=== PATIENT | male | born 1965 | race Caucasian/White ===

== ENCOUNTER 2017-09-16 18:13 | Emergency (ER) | payer BC ==
[2017-09-16] MEDS ORDERED: HYDROMORPHONE HCL INJ/PF 2 MG/ML AMPULE ONE ×2 (18:25→18:49)
[2017-09-16] MEDS ORDERED: HEPARIN SODIUM,PORCINE/D5W 25,000 UNIT/250 ML RTUINJ IV ONE (18:26)
[2017-09-16] MEDS ORDERED: ONDANSETRON HCL INJ/PF 4 MG/2 ML SDV ONE (18:28)
[2017-09-16] MEDS ORDERED: NITROGLYCERIN 0.4 MG/TAB 25 TAB/BOTTLE ONE (18:29)
[2017-09-16] MEDS ORDERED: HEPARIN SOD (PORCINE) 1,000 UNIT/ML 1 ML VIAL ONE (18:30)
[2017-09-16] MEDS ORDERED: HEPARIN SOD (PORCINE) 1,000 UNIT/ML 10 ML VIAL ONE (18:31)
[2017-09-16] MEDS ORDERED: NITROGLYCERIN/D5W 50 MG/250 ML RTUINJ IV ONE (18:34)
[2017-09-16] MEDS ORDERED: LABETALOL HCL INJ 20 MG/4 ML DISP.SYRIN IV ONE (18:48)
[2017-09-16] MEDS ORDERED: METOPROLOL TARTRATE PF/INJ 5 MG/5 ML SDV IV ONE ×4 (18:51→19:21)
[2017-09-16] MEDS ORDERED: ASPIRIN 81 MG TABLET, CHEWABLE PO ONE (18:52)
[2017-09-16 19:00] LABS: PROTHROMBIN TIME 12.8 SEC (11.4-15.4)
[2017-09-16 19:03] LABS: ABSOLUTE BASOPHILS # (AUTO) 0.1 10^3/uL (0.0-0.2); ABSOLUTE EOSINOPHILS # (AUTO) 0.1 10^3/uL (0.0-0.6); ABSOLUTE LYMPHOCYTES (AUTO) 5.2 10^3/uL (0.5-4.7); BASOPHILS % (AUTO) 0.7 % (0-2); EOSINOPHILS % (AUTO) 0.6 % (0-6); HEMOGLOBIN 15.6 g/dL (13.5-17.0); LYMPHOCYTES % (AUTO) 35.9 % (13-45); MEAN CORPUSCULAR HEMOGLOBIN 28.4 pg (27.0-33.4); MEAN CORPUSCULAR HGB CONC 33.9 g/dL (32.0-36.0); MEAN CORPUSCULAR VOLUME 84 fl (80-97); PLATELET COUNT 343 10^3/uL (150-450); RED BLOOD COUNT 5.49 10^6/uL (4.35-5.55); RED CELL DISTRIBUTION WIDTH 13.6 % (11.5-14.0); SEGMENTED NEUTROPHILS % (AUTO) 55.8 % (42-78); TOTAL CELLS COUNTED % (AUTO) 100 %; WHITE BLOOD COUNT 14.4 10^3/uL (4.0-10.5)
[2017-09-16 19:07] LABS: ALANINE AMINOTRANSFERASE 27 U/L (21-72); ALBUMIN 4.5 g/dL (3.5-5.0); ALKALINE PHOSPHATASE 113 U/L (38-126); ANION GAP 15 (5-19); ASPARTATE AMINO TRANSFERASE 25 U/L (17-59); BILIRUBIN,DIRECT 0.5 mg/dL (0.0-0.4); BILIRUBIN,TOTAL 0.6 mg/dL (0.2-1.3); BLOOD UREA NITROGEN 22 mg/dL (7-20); CALCIUM 9.9 mg/dL (8.4-10.2); CARBON DIOXIDE 20 mmol/L (22-30); CHLORIDE 105 mmol/L (98-107); CREATINE KINASE 214 U/L (55-170); GLUCOSE 150 mg/dL (75-110); POTASSIUM 3.6 mmol/L (3.6-5.0); SODIUM 140.4 mmol/L (137-145); TOTAL PROTEIN 7.1 g/dL (6.3-8.2)
--- NOTE | 2017-09-16 19:11 | RADIOLOGY REPORT (SQ) ---
EXAM DESCRIPTION: CHEST SINGLE VIEW COMPLETED DATE/TIME: 09/16/2017 7:02 pm REASON FOR STUDY: chest pain COMPARISON: None. EXAM PARAMETERS: NUMBER OF VIEWS: One view. TECHNIQUE: Single frontal radiographic view of the chest acquired. RADIATION DOSE: NA LIMITATIONS: None. FINDINGS: LUNGS AND PLEURA: No opacities, masses or pneumothorax. No pleural effusion. MEDIASTINUM AND HILAR STRUCTURES: No masses. Contour normal. HEART AND VASCULAR STRUCTURES: Heart normal in size. Normal vasculature. BONES: No acute findings. HARDWARE: None in the chest. OTHER: No other significant finding. IMPRESSION: NO ACUTE RADIOGRAPHIC FINDING IN THE CHEST. TECHNICAL DOCUMENTATION: JOB ID: [id number] [employer]- All Rights Reserved Reading location - IP/workstation name: [email or web address]
--- NOTE | 2017-09-16 19:13 | ER Document Report ---
ED Cardiac - General Chief Complaint: Chest Pain Stated Complaint: CHEST PAIN Time Seen by Provider: 09/16/17 18:20 Mode of Arrival: Wheelchair Information source: Patient Notes: This is a 51-year-old man with no medical problems who presents to the emergency room with retrosternal chest pain radiating down the left arm associated with diaphoresis. Patient has no medicines and has no medical problems. He is a smoker (1 pack every other day). He denies any cocaine. He states he has been under stress lately. He was working out today: He was pulling a car bishop with a large tree trunk on it. He was working out for approximately 20 minutes when the pain started. She has no cardiac history. TRAVEL OUTSIDE OF THE [place] IN LAST 30 DAYS: No - HPI Patient complains to provider of: Chest pain, Chest tightness, Other - Diaphoresis Use of: denies: Alcohol, Amphetamines, Bath salts, Caffeine, Cocaine, Decongestants Was the onset of pain: Gradual When did pain begin: While working out Is the pain a: New problem Chest pain location: Substernal Quality of pain: Heaviness Chest pain radiation location: Left shoulder Severity now: Moderate Severity at worst: Moderate Pain level currently: 4 Cardiac risk factors: None Positive cardiac history: No Associated symptoms: Diaphoresis. denies: Abdominal pain Exacerbated by: Emotional stress Relieved by: Nothing Similar symptoms previously: No Recently seen / treated by doctor: No - Related Data Allergies/Adverse Reactions: Penicillins Allergy (Verified 09/16/17 19:11) Past Medical History - General Information source: Patient - Social History Smoking Status: Current Every Day Smoker Cigarette use (# per day): Yes Chew tobacco use (# tins/day): No - Half a pack per day Frequency of alcohol use: None Drug Abuse: None Lives with: Family Family History: None Patient has suicidal ideation: No Patient has homicidal ideation: No - Medical History Medical History: Negative Past Surgical History: Reports: Hx Orthopedic Surgery Review of Systems - Review of Systems Constitutional: denies: Chills, Fever EENT: No symptoms reported Cardiovascular: See HPI Respiratory: No symptoms reported Gastrointestinal: No symptoms reported Genitourinary: No symptoms reported Male Genitourinary: No symptoms reported Musculoskeletal: No symptoms reported Skin: No symptoms reported Hematologic/Lymphatic: No symptoms reported Neurological/Psychological: No symptoms reported Physical Exam - Vital signs Vitals: Pulse Ox 97 09/16/17 18:15 Notes: Physical exam: GENERAL: 81-year-old man, alert and oriented 3, complaining of 8/10 chest pain. HEAD: Atraumatic, normocephalic. EYES: Pupils equal round and reactive to light, extraocular movements intact, sclera anicteric, conjunctiva are normal. ENT: TMs normal, nares patent, oropharynx clear without exudates. Moist mucous membranes. NECK: Normal range of motion, supple without obvious mass or JVD. LUNGS: Breath sounds clear to auscultation bilaterally and equal. No wheezes rales or rhonchi. HEART: Regular rate and rhythm without murmurs, rubs or gallops. ABDOMEN: Soft, normoactive bowel sounds. No tenderness to palpation. No guarding, no rebound. No masses appreciated. EXTREMITIES: Normal range of motion, no pitting or edema. No clubbing or cyanosis. NEUROLOGICAL: Cranial nerves II through XII grossly intact. Normal speech, moving all extremities. PSYCH: Normal mood, normal affect. SKIN: Warm, Dry, normal turgor, no rashes or lesions noted. Course - Re-evaluation Re-evalutation: Thrombolytics initiated. Aspirin 324 chewables given Sublingual nitroglycerin IV heparin bolus (4000 units) followed by drip at 1000 units an hour started. IV nitroglycerin drip initiated IV Dilaudid and IV Zofran for pain and nausea Plavix: 300 mg given IV metoprolol: Multiple boluses Patient's pain in the emergency room has fluctuated. Currently his pain is 2 out of 10. Repeat 12-lead shows significant worsening of ST elevations in the inferior leads and the lateral leads. The patient's blood pressure has actually increased. We have increased the nitro glycerin drip and he is gotten IV metoprolol boluses. Given the probable likelihood of her RV involvement, will have to be very careful about blood pressure if it begins to drop. 09/16/17 19:14 Note: On reassessment, the patient's blood pressure had improved but not resolved completely. Transporting the ER. Second EKG was faxed to [place]. 09/16/17 19:52 09/16/17 23:40 - Vital Signs Vital signs: Temp Pulse Resp BP Pulse Ox 98.1 F 97 16 167/123 H 96 03/06/18 21:37 09/16/17 21:37 09/16/17 21:37 09/16/17 21:37 09/16/17 21:37 - Laboratory Result Diagrams: 09/16/17 18:20 09/16/17 18:20 Laboratory results interpreted by me: 09/16/17 09/16/17 18:20 18:20 WBC 14.4 H Absolute Lymphocytes 5.2 H Carbon Dioxide 20 L BUN 22 H Glucose 150 H Direct Bilirubin 0.5 H Creatine Kinase 214 H - Diagnostic Test Radiology reviewed: Image reviewed, Reports reviewed - Chest x-ray shows no infiltrates, no obvious mediastinal widening. - EKG Interpretation by Me Rate: Normal Rhythm: NSR - EKG shows normal sinus rhythm with a ventricular rate of 86, ST elevations in II, III, and F, ST depressions in L, 1, V1, V2 Critical Care Note - Critical Care Note Total time excluding time spent on procedures (mins): 60 Discharge - Discharge Clinical Impression: Acute DE Condition: Serious Disposition: [facility]
[2017-09-16 19:19] LABS: CREATINE KINASE MB 2.66 ng/mL (<4.55)
[2017-09-16 19:24] LABS: TROPONIN I < 0.012 ng/mL
[2017-09-16] MEDS ORDERED: CLOPIDOGREL BISULFATE 300 MG TABLET PO ONE (20:40)
[2017-09-16] MEDS ORDERED: TENECTEPLASE INJ 50 MG KIT IV ONE ×2 (20:41→21:28)
--- NOTE | 2017-09-16 21:19 | EKG REPORT ---
SEVERITY:- ABNORMAL ECG - ACCELERATED JUNCTIONAL RHYTHM RIGHT BUNDLE BRANCH BLOCK INFERIOR AND LATERAL INFARCT, ACUTE : Confirmed by: Dulce Fabian 16-Sep-2017 21:18:38
--- NOTE | 2017-09-16 21:19 | EKG REPORT ---
SEVERITY:- ABNORMAL ECG - ECTOPIC ATRIAL RHYTHM LEFT POSTERIOR FASCICULAR BLOCK INFERIOR INJURY, PROBABLE EARLY ACUTE INFARCT : Confirmed by: Dulce Fabian 16-Sep-2017 21:19:02
[2017-09-16] MEDS ORDERED: CLOPIDOGREL BISULFATE 300 MG TABLET ONE (21:28)
[2017-09-16] MEDS ORDERED: CLOPIDOGREL BISULFATE 75 MG TABLET ONE (21:28)
[2017-09-16] MEDS ORDERED: ASPIRIN 81 MG TABLET, CHEWABLE ONE (21:28)
[2017-09-16 21:56] VITALS: BP 167/123
== END 2017-09-16 19:32 | disposition short-term general hospital (02) ==
LOC: ER 18:13
DX: I21.9 Acute myocardial infarction, unspecified (principal); R07.9 Chest pain, unspecified; R61 Generalized hyperhidrosis; F17.210 Nicotine dependence, cigarettes, uncomplicated; Z88.0 Allergy status to penicillin
CPT/HCPCS: 93005; 99291; 96375; 96365; 96366; 96368; 36415; 82553; 82550; 85025; 85610; 80053; 84484; 71045; 93010; J3101; J3490 ×3; J1644 ×2; J1170; J2405

== ENCOUNTER 2020-05-16 22:00 | Emergency (ER) | payer BC ==
--- NOTE | 2020-05-16 22:39 | ER Document Report ---
ED Medical Screen (RME) - General Stated Complaint: LEFT SIDE NUMBNESS PREV HEARTACHE Time Seen by Provider: 05/16/20 22:22 Notes: Patient is a 54-year-old male who presents to the emergency department with a chief complaint of left-sided weakness and numbness. Patient states that around 1600 when he got off work, he noticed that his cell phone 1 drop out of his hand. Patient states that he has history of heart attack 2 years ago with stent placement. Denies any chest pain. He is not currently taking any medications. Exam: Slight weakness noted to the left side as compared to right. I have greeted and performed a rapid initial assessment of this patient. A comprehensive ED assessment and evaluation of the patient, analysis of test results and completion of medical decision making process will be conducted by an additional ED providers. TRAVEL OUTSIDE OF THE U[place] IN LAST 30 DAYS: No - Related Data Allergies/Adverse Reactions: Penicillins Allergy (Verified 09/16/17 19:11) Past Medical History Renal/ Medical History: Denies: Hx Peritoneal Dialysis Past Surgical History: Reports: Hx Orthopedic Surgery Physical Exam - Vital signs Vitals: Temp Pulse Resp BP Pulse Ox 98.8 F 80 19 176/109 H 98 05/16/20 22:18 05/16/20 22:18 05/16/20 22:18 05/16/20 22:18 05/16/20 22:18 Course - Vital Signs Vital signs: Temp Pulse Resp BP Pulse Ox 98.8 F 80 19 176/109 H 98 05/16/20 22:18 05/16/20 22:18 05/16/20 22:18 05/16/20 22:18 05/16/20 22:18
[2020-05-16] MEDS ORDERED: NICARDIPINE HCL RTU, ISO-OS 20 MG/200 ML RTUINJ IV PRN (22:56)
[2020-05-16] MEDS ORDERED: NIMODIPINE 30 MG CAPSULE PO ONE ×2 (22:56→22:59)
[2020-05-16] MEDS ORDERED: TRANEXAMIC ACID INJ/PF 1,000 MG/10 ML SDV IV ONE (22:58)
--- NOTE | 2020-05-16 22:59 | RADIOLOGY REPORT (SQ) ---
CT head without contrast on 05/16/2020 at 10:32 PM CLINICAL INDICATION: Left-sided numbness TECHNIQUE: Multiple axial images are obtained throughout the head without the administration of contrast. This exam was performed according to our departmental dose-optimization program, which includes automated exposure control, adjustment of the mA and/or kV according to patient size and/or use of iterative reconstruction technique. Total DLP is 990.56 mGy*cm. COMPARISON: None FINDINGS: There is acute intraparenchymal hemorrhage/hematoma within the right basal ganglia measuring approximately 3.5 x 1.9 x 2.7 cm. Most likely this is hypertensive in nature but please correlate clinically. There is no hydrocephalus. There is no CT evidence of acute infarct. No other hemorrhage is noted. There are no abnormal extra-axial fluid collections. There is no mass effect or midline shift. No bony abnormality is noted. IMPRESSION: Acute intraparenchymal hemorrhage/hematoma in the right basal ganglia most likely hypertensive in nature.
[2020-05-16 23:02] LABS: ABSOLUTE BASOPHILS # (AUTO) 0.1 10^3/uL (0.0-0.2); ABSOLUTE EOSINOPHILS # (AUTO) 0.2 10^3/uL (0.0-0.6); ABSOLUTE LYMPHOCYTES (AUTO) 2.4 10^3/uL (0.5-4.7); ABSOLUTE MONOCYTES (AUTO) 0.6 10^3/uL (0.1-1.4); BASOPHILS % (AUTO) 0.8 % (0-2); EOSINOPHILS % (AUTO) 2.2 % (0-6); HEMATOCRIT 45.4 % (37.9-51.0); HEMOGLOBIN 16.1 g/dL (13.5-17.0); LYMPHOCYTES % (AUTO) 25.6 % (13-45); MEAN CORPUSCULAR HEMOGLOBIN 29.9 pg (27.0-33.4); MEAN CORPUSCULAR HGB CONC 35.4 g/dL (32.0-36.0); MEAN CORPUSCULAR VOLUME 84 fl (80-97); MONOCYTES % (AUTO) 6.7 % (3-13); PLATELET COUNT 225 10^3/uL (150-450); RED BLOOD COUNT 5.38 10^6/uL (4.35-5.55); RED CELL DISTRIBUTION WIDTH 13.2 % (11.5-14.0); SEGMENTED NEUTROPHILS % (AUTO) 64.7 % (42-78); TOTAL CELLS COUNTED % (AUTO) 100 %; WHITE BLOOD COUNT 9.3 10^3/uL (4.0-10.5)
[2020-05-16] MEDS ORDERED: LEVETIRACETAM 1000 MG/NACL-ISO 1,000 MG/100 ML RTUPB IV ONE (23:06)
[2020-05-16 23:17] LABS: ALBUMIN 4.3 g/dL (3.5-5.0); ALKALINE PHOSPHATASE 112 U/L (38-126); ANION GAP 8 (5-19); ASPARTATE AMINO TRANSFERASE 25 U/L (17-59); BILIRUBIN,DIRECT 0.1 mg/dL (0.0-0.4); BILIRUBIN,TOTAL 0.3 mg/dL (0.2-1.3); BLOOD UREA NITROGEN 12 mg/dL (7-20); CALCIUM 9.4 mg/dL (8.4-10.2); CARBON DIOXIDE 29 mmol/L (22-30); CHLORIDE 103 mmol/L (98-107); GLUCOSE 127 mg/dL (75-110); POTASSIUM 4.1 mmol/L (3.6-5.0)
[2020-05-16 23:18] LABS: INTERNATIONAL RATION (INR) 0.93; PROTHROMBIN TIME 12.6 SEC (11.4-15.4)
--- NOTE | 2020-05-16 23:45 | ER Document Report ---
ED General - General Chief Complaint: S/S of Possible Stroke Stated Complaint: LEFT SIDE NUMBNESS PREV HEARTACHE Time Seen by Provider: 05/16/20 22:22 Notes: 54-year-old male history of hypertension presents with mild headache, sensation of feeling "off", and numbness in left arm and leg that began at 4 PM on day of presentation and has been constant since. Patient says he was supposed to be on aspirin but has not been taking any time recently. Has been diagnosed with high blood pressure but has not been taking medication for this. Patient denies any trauma, anticoagulation, antiplatelet tx, bleeding diatheses, prior episodes, stroke/intracranial hemorrhage history, syncope, vertigo, weakness, change in gait. Endorses episode several days ago where he felt like he had pain in lateral neck behind his ear but did not have any associated symptoms with that. TRAVEL OUTSIDE OF THE [place] IN LAST 30 DAYS: No - Related Data Allergies/Adverse Reactions: Penicillins Allergy (Verified 09/16/17 19:11) Past Medical History - General Information source: Patient - Social History Smoking Status: Unknown if Ever Smoked Family History: None Renal/ Medical History: Denies: Hx Peritoneal Dialysis Past Surgical History: Reports: Hx Orthopedic Surgery Review of Systems - Review of Systems Notes: REVIEW OF SYSTEMS: CONSTITUTIONAL : Denies fever, chills, or sweats. EENT: Denies recent cold/sinus symptoms, denies throat pain CARDIOVASCULAR: Denies chest pain, JOSEPH RESPIRATORY: Denies cough, denies shortness of breath. GASTROINTESTINAL: Denies abdominal pain, nausea/vomiting. GENITOURINARY: Denies difficulty urinating, painful urination. MUSCULOSKELETAL: + neck pain, -back pain. SKIN: Denies rash or skin lesions. HEMATOLOGIC : Denies easy bruising or bleeding. LYMPHATIC: Denies swollen, enlarged glands. NEUROLOGICAL: + headache, denies change in gait. PSYCHIATRIC: Denies anxiety or stress or depression. Physical Exam - Vital signs Vitals: Temp Pulse Resp BP Pulse Ox 98.8 F 80 19 176/109 H 98 05/16/20 22:18 05/16/20 22:18 05/16/20 22:18 05/16/20 22:18 05/16/20 22:18 - Notes Notes: PHYSICAL EXAMINATION: GENERAL: Well-appearing, well-nourished and in no acute distress. HEAD: Atraumatic, normocephalic. EYES: Pupils equal round and appropriate constriction, sclera anicteric, conjunctiva are normal. ENT: nares patent, moist mucous membranes. NECK: Normal range of motion, supple without lymphadenopathy, no C-spine tenderness or deformity, no bruits LUNGS: Breath sounds clear to auscultation bilaterally and equal. No wheezes rales or rhonchi. HEART: Regular rate and rhythm without murmurs ABDOMEN: Soft, nontender, no guarding, no masses, no CVAT EXTREMITIES: Normal range of motion, no pitting or edema. No cyanosis. NEUROLOGICAL: Awake, alert, conversing appropriately, moves all extremities spontaneously, 5-5 strength in all extremities, decreased sensation in left upper and lower extremity but aware of touch, normal [id number] bilaterally, cranial nerves II through XII intact bilaterally PSYCH: Normal mood, normal affect. SKIN: Warm, Dry, normal turgor, no rashes or lesions noted. Course - Re-evaluation Re-evalutation: 05/16/20 23:43 Patient presents with headache, obtain CT after being triaged by provider which showed intraparenchymal intracranial hemorrhage in the right basal ganglia. GCS 15, patient hypertensive, endorses episode of lateral neck pain but not over carotid distribution few days ago and no symptoms at that time, but will eval uate on CTA head and neck. Ordered TXA, nicardipine with strict blood pressure control parameters, lability pain, Keppra, I have discussed with neurology from [facility]. Patient accepted by Dr. Taylor but waiting to find out whether bed is available. We will continue to monitor and stabilize here and if bed is not available will consult for additional hospitals for transfer. 05/17/20 00:14 Still no bed available at [facility] so called [facility] and spoke to Kameron Payne who accepted [facility] on behalf of Dr. Trevizo, but currently no bed availability. Say will contact me when bed is available. Have now initiated transfer to [facility] also. 05/17/20 00:46 Dr. Kincaid at [facility] has accepted pt to [facility] but also no beds available. 05/17/20 01:[address] Singh who says no ICU availability at [facility], [facility] or [place] and to call back in 6 hours to check again 05/17/20 01:08 VALVE TECHNICIAN [facility]an has agreed to take the patient as there is no ICU bed availability at outside facilities for the patient currently. He remains on the wait list at [facility], [facility], and [facility]. His exam remains stable, his blood pressure has been well controlled on nicardipine drip, I have updated patient and at patient's request I have updated family as to his care and his disposition. 05/17/20 01:49 [facility]ceived call from [facility] that they now have ICU availability and have accepted patient and assigned him a bed. I notified Gloria Mai. Patient's exam remains unchanged. 05/17/20 02:04 Air transport team here for patient, patient remains feeling well, exam has been stable, patient remains appropriate for transfer at this time. - Vital Signs Vital signs: Temp Pulse Resp BP Pulse Ox 97.5 F 80 14 124/60 96 05/17/20 02:02 05/17/20 02:02 05/17/20 02:02 05/17/20 02:02 05/17/20 02:02 - Laboratory Result Diagrams: 05/16/20 22:50 05/16/20 22:50 Laboratory results interpreted by me: 05/16/20 22:50 Glucose 127 H - EKG Interpretation by Me Additional EKG results interpreted by me: 05/20/20 06:48 Sinus rhythm, LVH, no significant ST elevations or depressions, inferior Q waves Critical Care Note - Critical Care Note Total time excluding time spent on procedures (mins): 75 - Spent time stabilizing patient with acute intracerebral hemorrhage, optimizing blood pressure with IV antihypertensive infusion, consulting with multiple specialists at multiple outside facilities. Discharge - Discharge Clinical Impression: Intracerebral bleed Qualifiers: Intracerebral hemorrhage etiology: nontraumatic Cerebral hemorrhage location: unspecified cerebral location Laterality: right Qualified Code(s): I61.9 - Nontraumatic intracerebral hemorrhage, unspecified Disposition: [facility]
--- NOTE | 2020-05-17 00:26 | RADIOLOGY REPORT (SQ) ---
CLINICAL INDICATION: intracranial hemorrhage CREAT 0.89. . TECHNIQUE: CT arteriography was obtained of the extracranial carotid and vertebral arteries and [place] with multiplanar MIP and/or 3-D angiographic reconstructions. This exam was performed according to our departmental dose-optimization program, which includes automated exposure control, adjustment of the mA and/or kV according to patient size and/or use of iterative reconstruction techniques. COMPARISON: None. CORRELATION: None. FINDINGS: NECK: The aortic arch showed origin of left vertebral from the arch, an anatomic variant. No hemodynamically significant stenosis is identified at the origin of great vessels. Artifact from venous opacification Right: The common carotid artery is unremarkable without evidence of hemodynamically significant stenosis. The external carotid artery is unremarkable without evidence of hemodynamically significant stenosis. The cervical internal carotid artery is unremarkable without evidence of hemodynamically significant stenosis. Left: The common carotid artery is unremarkable without evidence of hemodynamically significant stenosis. The external carotid artery is unremarkable without evidence of hemodynamically significant stenosis. The cervical internal carotid artery is unremarkable without evidence of hemodynamically significant stenosis. The vertebral arteries are unremarkable without evidence of hemodynamically significant stenosis. Right vertebral dominance. Left vertebral is quite atretic. Surrounding soft tissues of the neck are unremarkable. Brain: Artifact from venous opacification. Intracranial internal carotid arteries are patent. The central middle cerebral arteries are patent. The central anterior cerebral arteries are patent. The central posterior cerebral arteries are patent. There appears to be origin on the left. Cerebral arteries are difficult to assess more peripherally given adjacent venous opacification. Vertebrobasilar system is patent, right vertebral dominant. Internal carotid artery stenosis quantification and significance is defined utilizing the methods of [place] Symptomatic Carotid Endarterectomy Trial (NASCET). IMPRESSION: No evidence of hemodynamically significant stenosis of the extracranial carotid and vertebral systems. Unremarkable CTA central [place]. Please see report of brain.
--- NOTE | 2020-05-17 00:26 | RADIOLOGY REPORT (SQ) ---
CLINICAL INDICATION: intracranial hemorrhage CREAT 0.89. . TECHNIQUE: CT arteriography was obtained of the extracranial carotid and vertebral arteries and [place] with multiplanar MIP and/or 3-D angiographic reconstructions. This exam was performed according to our departmental dose-optimization program, which includes automated exposure control, adjustment of the mA and/or kV according to patient size and/or use of iterative reconstruction techniques. COMPARISON: None. CORRELATION: None. FINDINGS: NECK: The aortic arch showed origin of left vertebral from the arch, an anatomic variant. No hemodynamically significant stenosis is identified at the origin of great vessels. Artifact from venous opacification Right: The common carotid artery is unremarkable without evidence of hemodynamically significant stenosis. The external carotid artery is unremarkable without evidence of hemodynamically significant stenosis. The cervical internal carotid artery is unremarkable without evidence of hemodynamically significant stenosis. Left: The common carotid artery is unremarkable without evidence of hemodynamically significant stenosis. The external carotid artery is unremarkable without evidence of hemodynamically significant stenosis. The cervical internal carotid artery is unremarkable without evidence of hemodynamically significant stenosis. The vertebral arteries are unremarkable without evidence of hemodynamically significant stenosis. Right vertebral dominance. Left vertebral is quite atretic. Surrounding soft tissues of the neck are unremarkable. Brain: Artifact from venous opacification. Intracranial internal carotid arteries are patent. The central middle cerebral arteries are patent. The central anterior cerebral arteries are patent. The central posterior cerebral arteries are patent. There appears to be origin on the left. Cerebral arteries are difficult to assess more peripherally given adjacent venous opacification. Vertebrobasilar system is patent, right vertebral dominant. Internal carotid artery stenosis quantification and significance is defined utilizing the methods of [place] Symptomatic Carotid Endarterectomy Trial (NASCET). IMPRESSION: No evidence of hemodynamically significant stenosis of the extracranial carotid and vertebral systems. Unremarkable CTA central [place]. Please see report of brain.
[2020-05-17] MEDS ORDERED: NICARDIPINE HCL RTU, ISO-OS 20 MG/200 ML RTUINJ IV PRN (00:39)
[2020-05-17] MEDS ORDERED: NIMODIPINE 30 MG CAPSULE ONE (00:45)
[2020-05-17 02:07] VITALS: BP 124/60
--- NOTE | 2020-05-17 18:55 | EKG REPORT ---
SEVERITY:- ABNORMAL ECG - SINUS RHYTHM LEFT VENTRICULAR HYPERTROPHY INFERIOR INFARCT, AGE INDETERMINATE CONSIDER ANTERIOR INFARCT : Confirmed by: Merrick Baer MD 17-May-2020 18:54:22
== END 2020-05-17 02:07 | disposition short-term general hospital (02) ==
LOC: ER 22:00
DX: I61.8 Other nontraumatic intracerebral hemorrhage (principal); T39.016A Underdosing of aspirin, initial encounter; Z91.14 Patient's other noncompliance with medication regimen; R20.0 Anesthesia of skin; R51.9 Headache, unspecified; M54.2 Cervicalgia; I10 Essential (primary) hypertension; Z88.0 Allergy status to penicillin
CPT/HCPCS: 99291; 96375; 96365; 96366 ×2; 86900; 86901; 36415; 86850; 85025; 85610; 85730; 80053; 70450; 70496; 70498; 93005; 93010; J3490 ×4; J1953